=== PATIENT | male | born 1930 | race Caucasian/White ===

== ENCOUNTER 2019-11-23 22:03 | Inpatient (IN) | payer OTHER ==
[~2019-11-23] VITALS: Ht 167.6 cm; Wt 78.0 kg
[~2019-11-23 22:03] MED LIST: AMIODARONE HCL200 MG PO; AMIODARONE200 MG PO; ANT25 PO; ANTIVERT/2525 MG PO; AUGMENTIN1 TA2 PO; CARDURA2 MG PO; CARVEDILOL3.125 M1 PO; COLACE100 MG PO; COR3 PO; GOOD SENSE ASPI81 M3 PO; HALCION0.25 MG PO; HYDROCHLOROTHIA25 MG PO; KEPPRA500 MG PO; LIPI20 PO; METFORMIN1000 M1 PO; PRINIVIL20 MG PO; TRAMADOL HCL50 MG PO; ZESTRIL20 MG PO
[2019-11-23 22:04] VITALS: Ht 167.6 cm; Wt 78.0 kg
[2019-11-23 23:07] LABS: BASOPHIL % 0.8 % (0-2); RED CELL DISTRIBUTION WIDTH 14.1 % (11.5-14.5)
[2019-11-23 23:09] LABS: CALCIUM 8.8 mg/dL (8.5-10.1); CARBON DIOXIDE 26.9 mmol/L (21-32); CHLORIDE SERUM 103 mmol/L (98-107); CREATININE SERUM 2.2 mg/dL (0.7-1.3); GLUCOSE SERUM 169 mg/dL (74-106); PLATELET COUNT 128 x10^3mcL (130-400); POTASSIUM SERUM 3.9 mmol/L (3.5-5.1); SODIUM SERUM 140 mmol/L (136-145)
[2019-11-23 23:13] LABS: ALBUMIN 3.7 g/dL (3.4-5.0); ALKALINE PHOSPHATASE 95 U/L (46-116); ALT/SGPT 21 U/L (16-63); AST/SGOT 19 U/L (15-37); BILIRUBIN TOTAL 0.55 mg/dL (0.20-1.00); MAGNESIUM 2.2 mg/dL (1.8-2.4); TOTAL PROTEIN, SERUM 7.1 g/dL (6.4-8.2)
[2019-11-23] MEDS ORDERED: LISINOPRIL10 MG PO (23:43)
[2019-11-23] MEDS ORDERED: LIPI20 PO (23:43)
[2019-11-23] MEDS ORDERED: METFORMIN ER500 M1 PO (23:43)
[2019-11-24 04:27] LABS: CHOLESTEROL/HDL RATIO 2.9; PHOSPHOROUS 3.2 mg/dL (2.5-4.9)
[2019-11-24 04:40] LABS: microscopic required? YES; urine erythrocyte TRACE (NEGATIVE)
[2019-11-24 04:50] LABS: AMPHETAMINE QUAL UR NONE DETECTED (See below)
[2019-11-24 06:34] VITALS: BP 136/67
[2019-11-24 06:40] LABS: BASOPHIL % 0.8 % (0-2); RED CELL DISTRIBUTION WIDTH 14.2 % (11.5-14.5)
[2019-11-24 06:54] LABS: CALCIUM 8.4 mg/dL (8.5-10.1); CARBON DIOXIDE 26.6 mmol/L (21-32); CHLORIDE SERUM 105 mmol/L (98-107); CREATININE SERUM 2.2 mg/dL (0.7-1.3); GLUCOSE SERUM 177 mg/dL (74-106); MAGNESIUM 2.2 mg/dL (1.8-2.4); PHOSPHOROUS 3.5 mg/dL (2.5-4.9); POTASSIUM SERUM 4.1 mmol/L (3.5-5.1); SODIUM SERUM 138 mmol/L (136-145)
[2019-11-24 07:01] LABS: PLATELET COUNT 119 x10^3mcL (130-400)
[2019-11-24 09:25] VITALS: BP 154/74
[2019-11-24 13:54] VITALS: BP 154/69
[2019-11-24 18:11] VITALS: BP 145/63
[2019-11-24 20:37] VITALS: BP 154/58
[2019-11-25 05:48] VITALS: BP 152/49
[2019-11-25 07:22] LABS: BASOPHIL % 0.6 % (0-2); RED CELL DISTRIBUTION WIDTH 14.2 % (11.5-14.5)
[2019-11-25 07:29] LABS: PLATELET COUNT 108 x10^3mcL (130-400)
[2019-11-25 07:52] VITALS: BP 113/74
[2019-11-25 08:59] LABS: CALCIUM 8.4 mg/dL (8.5-10.1); CARBON DIOXIDE 28.8 mmol/L (21-32); CHLORIDE SERUM 108 mmol/L (98-107); CREATININE SERUM 2.1 mg/dL (0.7-1.3); GLUCOSE SERUM 154 mg/dL (74-106); MAGNESIUM 2.1 mg/dL (1.8-2.4); PHOSPHOROUS 2.9 mg/dL (2.5-4.9); POTASSIUM SERUM 4.9 mmol/L (3.5-5.1); SODIUM SERUM 143 mmol/L (136-145)
[2019-11-25 11:53] VITALS: BP 141/54
[2019-11-25 16:25] VITALS: BP 156/62
[2019-11-25 21:48] VITALS: BP 130/52
[2019-11-26 05:43] VITALS: BP 149/62
[2019-11-26 07:40] LABS: BASOPHIL % 0.8 % (0-2); PLATELET COUNT 104 x10^3mcL (130-400); RED CELL DISTRIBUTION WIDTH 14.1 % (11.5-14.5)
[2019-11-26 07:44] LABS: CALCIUM 8.1 mg/dL (8.5-10.1); CARBON DIOXIDE 25.2 mmol/L (21-32); CHLORIDE SERUM 106 mmol/L (98-107); CREATININE SERUM 2.2 mg/dL (0.7-1.3); GLUCOSE SERUM 152 mg/dL (74-106); MAGNESIUM 2.2 mg/dL (1.8-2.4); PHOSPHOROUS 3.2 mg/dL (2.5-4.9); POTASSIUM SERUM 4.1 mmol/L (3.5-5.1); SODIUM SERUM 137 mmol/L (136-145)
[2019-11-26 07:58] VITALS: BP 153/66
[2019-11-26 11:57] VITALS: BP 107/74
[2019-11-26 17:44] VITALS: BP 151/59
[2019-11-26 19:44] VITALS: BP 154/61
[2019-11-27 05:30] VITALS: BP 137/49
[2019-11-27 06:46] LABS: BASOPHIL % 0.3 % (0-2)
[2019-11-27 07:24] LABS: PLATELET COUNT 97 x10^3mcL (130-400); RED CELL DISTRIBUTION WIDTH 14.6 % (11.5-14.5)
[2019-11-27 07:59] VITALS: BP 109/56
[2019-11-27 11:41] LABS: CALCIUM 8.6 mg/dL (8.5-10.1); CHLORIDE SERUM 106 mmol/L (98-107); CREATININE SERUM 2.2 mg/dL (0.7-1.3); GLUCOSE SERUM 128 mg/dL (74-106); MAGNESIUM 2.2 mg/dL (1.8-2.4); PHOSPHOROUS 3.6 mg/dL (2.5-4.9); POTASSIUM SERUM 4.1 mmol/L (3.5-5.1); SODIUM SERUM 141 mmol/L (136-145)
[2019-11-27 11:56] VITALS: BP 137/51
[2019-11-27 16:40] VITALS: BP 131/59
[2019-11-27] MEDS ORDERED: LIPI20 PO (17:09)
[2019-11-27] MEDS ORDERED: ECO81 PO (17:10)
[2019-11-27] MEDS ORDERED: COR6 PO (17:10)
[2019-11-27] MEDS ORDERED: ZES10 PO (17:10)
[2019-11-27 19:53] VITALS: BP 136/54
[2019-11-28 04:06] VITALS: BP 159/54
[2019-11-28 08:25] VITALS: BP 125/54
== END 2019-11-28 10:24 | DRG 281 ==
LOC: ED 22:03 → DU 11-24 02:28
PROVIDERS: Emergency Medicine; Family Medicine; ADMIT Internal Medicine
DX: I21.4 Non-ST elevation (NSTEMI) myocardial infarction (principal); N17.9 Acute kidney failure, unspecified; N18.4 Chronic kidney disease, stage 4 (severe); I48.20 Chronic atrial fibrillation, unspecified; D68.69 Other thrombophilia; E86.0 Dehydration; E11.65 Type 2 diabetes mellitus with hyperglycemia; E11.22 Type 2 diabetes mellitus with diabetic chronic kidney disease; I13.10 Hypertensive heart and chronic kidney disease without heart failure, with stage 1 through stage 4 chronic kidney disease, or unspecified chronic kidney disease; I25.10 Atherosclerotic heart disease of native coronary artery without angina pectoris; D69.59 Other secondary thrombocytopenia; E78.5 Hyperlipidemia, unspecified; Z95.0 Presence of cardiac pacemaker; Z95.1 Presence of aortocoronary bypass graft; Z79.82 Long term (current) use of aspirin; Z79.84 Long term (current) use of oral hypoglycemic drugs; Z96.652 Presence of left artificial knee joint; Z96.612 Presence of left artificial shoulder joint; Z96.611 Presence of right artificial shoulder joint; Z68.27 Body mass index [BMI] 27.0-27.9, adult
CPT/HCPCS: 82962; 83880; 97110-GP; 97116-GP; 97530-GP; A9500; G0378; J1644; J1815; J2270; J2405; J2785; J7030; Q0092